=== PATIENT | female | born 1950 | race Caucasian/White ===

== ENCOUNTER → 2022-03-03 | Outpatient (RCR) | payer MEDICARE ==
[~2022-03-03] MED LIST: AC500T PO; ARMO50TA3 PO; BPR150TCR PO; BPR75T PO; CHOL200035 PO; DICL75TA2 PO; FENO135C PO; LACT1CAP69 PO; MECL-124 PO; METF500T8 PO; ONDAN4ODT PO; OXYC-12 PO; PRAV40TA PO; SCOP1PAT TD; TURM500C PO
== END | disposition home or self-care (01) ==
LOC: CR 02-15 07:53
PROVIDERS: ATTEND Internal Medicine Interventional Cardiology
DX: Z29.8 Encounter for other specified prophylactic measures (principal); I25.118 Atherosclerotic heart disease of native coronary artery with other forms of angina pectoris; Z95.820 Peripheral vascular angioplasty status with implants and grafts
CPT/HCPCS: 93798

== ENCOUNTER → 2022-04-03 | Outpatient (RCR) | payer MEDICARE | END | disposition home or self-care (01) | LOC: CR 03-06 06:30 | PROVIDERS: ATTEND Internal Medicine Interventional Cardiology | DX: Z29.8 Encounter for other specified prophylactic measures (principal); I25.118 Atherosclerotic heart disease of native coronary artery with other forms of angina pectoris; Z95.820 Peripheral vascular angioplasty status with implants and grafts | CPT/HCPCS: 93798 ==

== ENCOUNTER 2022-05-01 14:43 | Outpatient (RCR) | payer MEDICARE | END 2022-05-03 | disposition home or self-care (01) | LOC: CR 14:43 | PROVIDERS: ATTEND Internal Medicine Interventional Cardiology | DX: Z29.8 Encounter for other specified prophylactic measures (principal); I25.118 Atherosclerotic heart disease of native coronary artery with other forms of angina pectoris; Z95.820 Peripheral vascular angioplasty status with implants and grafts | CPT/HCPCS: 93798 ==

== ENCOUNTER 2022-05-24 09:54 | Outpatient (RCR) | payer MEDICARE | END 2022-06-03 | disposition home or self-care (01) | LOC: CR 09:54 | PROVIDERS: ATTEND Internal Medicine Interventional Cardiology | DX: Z29.8 Encounter for other specified prophylactic measures (principal); I25.118 Atherosclerotic heart disease of native coronary artery with other forms of angina pectoris; Z95.820 Peripheral vascular angioplasty status with implants and grafts | CPT/HCPCS: 93798 ==

== ENCOUNTER 2022-06-30 10:07 | Outpatient (RCR) | payer MEDICARE | END 2022-07-04 | disposition home or self-care (01) | LOC: CR 10:07 | PROVIDERS: ATTEND Internal Medicine Interventional Cardiology | DX: Z29.8 Encounter for other specified prophylactic measures (principal); I25.118 Atherosclerotic heart disease of native coronary artery with other forms of angina pectoris; Z95.820 Peripheral vascular angioplasty status with implants and grafts | CPT/HCPCS: 93798 ==

== ENCOUNTER → 2023-01-23 | Outpatient (CLI) | payer MEDICARE ==
--- NOTE | 2023-01-23 11:28 | Diagnostic Imaging Report ---
INDICATION: Postmenopausal state. COMPARISON: 07/23/2008 FINDINGS: AP Spine L2-L4: [BMD (g/cm2): 0.961] [T-Score: -2.0] [Z-Score: -0.6] [BMD Previous: 1.022] [BMD % Change: -6.0*] LT Hip Neck: [BMD (g/cm2): 0.692] [T-Score: -2.5] [Z-Score: -0.9] LT Hip Total: [BMD (g/cm2):0.815] [T-Score:-1.5] [Z-Score: -0.2] [BMD Previous: 0.910] [BMD % Change: -10.4*] RT Hip Neck: [BMD (g/cm2):0.660] [T-Score:-2.7] [Z-Score:-1.2] RT Hip Total: [BMD (g/cm2):0.751] [T-score:-2.0] [Z-Score:-0.7] [BMD Previous:0.899] [BMD % Change:16.5*] *Indicates significant change from prior examination based on 95% confidence level. World Health Organization criteria for BMD interpretation classify patients as Normal (T-score at or above -1.0), Osteopenic (T-score between -1.0 and -2.5) or Osteoporotic (T-score at or below -2.5). LIMITATIONS AND MODIFICATION: None. FRACTURE RISK (FRAX SCORE): The ten year probability of (%): Major Osteoporotic Fracture: [15.9] Hip Fracture: [4.5] IMPRESSION: 1. Osteoporosis. 2. Bone mineral density has decreased by a statistically significant amount, as detailed above. 3. See below National Osteoporosis Foundation guidelines on when to potentially initiate pharmacologic therapy. Based on the National Osteoporosis Foundation Guidelines, pharmacologic treatment should be initiated in any of the following, unless clinical conditions suggest otherwise: * Any patient with prior fragility fracture of the hip or vertebrae. A spine fracture indicates 5X risk for subsequent spine fracture and 2X risk for subsequent hip fracture. * Osteoporosis (T-score <-2.5). * Postmenopausal women and men age 50 and older with low bone mass/osteopenia (T-score between -1.0 and -2.5) by DXA and 10-year major osteoporotic fracture greater than 20% or a 10-year probability of hip fracture greater than 3%. These fracture risks are supplied above in the FRAX score, if applicable. * Clinician judgement and/or patient preferences may indicate treatment for people with 10-year fracture probabilities above or below these levels. Dictated by: Dictated on workstation # [id number]
== END ==
LOC: RAD 09:28
PROVIDERS: ATTEND Nurse Practitioner Family
DX: M81.0 Age-related osteoporosis without current pathological fracture (principal); Z87.891 Personal history of nicotine dependence
CPT/HCPCS: 77080